=== PATIENT | female | born 1965 | race Caucasian/White ===

== ENCOUNTER 2018-04-07 10:30 | Outpatient (CLI) | payer OTHER ==
[~2018-04-07] VITALS: Ht 167.6 cm; Wt 83.9 kg
[~2018-04-07 10:30] MED LIST: HYDR1TAB PO
[2018-04-07] MEDS ORDERED: SERT50TA2 PO (10:36)
[2018-04-07] MEDS ORDERED: LISI1TAB8 PO (10:36)
[2018-04-08] MEDS ORDERED: RANI150T46 PO (07:52)
[2018-04-08] MEDS ORDERED: HYDR-3870 PO (11:27)
[2018-04-08] MEDS ORDERED: TAMS0.4C98 PO (11:27)
[2018-04-08] MEDS ORDERED: NITR-65 PO (11:27)
== END 2018-04-07 11:05 ==
LOC: PREOP 10:30
PROVIDERS: ATTEND Urology
DX: Z01.818 Encounter for other preprocedural examination (principal)

== ENCOUNTER 2018-04-08 07:02 | Day surgery (SDC) | payer OTHER ==
[~2018-04-08] VITALS: Ht 167.6 cm; Wt 83.9 kg
[~2018-04-08 07:02] MED LIST changes: +LISI1TAB8 PO; +SERT50TA2 PO
--- OUTSIDE RECORDS SUMMARY | 2018-04-08 07:05 | XMS REPORT ---
Author Author SHAWN ANGELES Organization [employer] Address Unknown Phone Unavailable Care Team Providers Care Supply Teacher Name Role Phone SHAWN ANGELES CP Unavailable Allergies No Known Allergies Problems Problem Type Condition Code Onset Dates Condition Status Problem Other and unspecified ovarian cyst 620.2 Active Problem Diverticulitis of colon (without mention of hemorrhage) 562.11 Active Problem Hypertension 401.9 Active Problem Calculus of ureter 592.1 Active Problem Unspecified breast screening V76.10 Active Problem Calculus of kidney 592.0 Active Problem Diverticulosis of small intestine (without mention of hemorrhage) 562.00 Active Medications No Known Medications Results No Known Results Summary Purpose eClinicalWorks Submission
--- OUTSIDE RECORDS SUMMARY | 2018-04-08 07:05 | XMS REPORT ---
Author Author DAVID VILLARREAL [facility] Address Unknown Care Team Providers Care Staff Genetic Counselor Name Role Phone DAVID VILLARREAL Unavailable PROBLEMS Type Condition ICD9-CM Code EDG56-SD Code Onset Dates Condition Status SNOMED Code Problem Unspecified breast screening V76.10 Active 687754970 Problem Hypertension 401.9 Active 47963688 Problem Diverticulosis of small intestine (without mention of hemorrhage) 562.00 Active 6572755 Problem Calculus of ureter 592.1 Active 87153714 Problem Other and unspecified ovarian cyst 620.2 Active 81327765 Problem Diverticulitis of colon (without mention of hemorrhage) 562.11 Active 263519026 Problem Calculus of kidney 592.0 Active 21944066 ALLERGIES Substance Reaction Event Type Date Status Naproxen rash Drug Allergy Sep, Active Erythromycin rash Drug Allergy Sep, Active Dilaudid anaphylaxis Drug Allergy Sep, Active Codeine Sulfate rash Drug Allergy Sep, Active Aspirin rash Drug Allergy Sep, Active SOCIAL HISTORY No smoking Hx information available PLAN OF CARE Activity Details Follow Up prn Reason:prophy VITAL SIGNS Blood pressure systolic 123 mmHg 2016-09-18 Blood pressure diastolic 91 mmHg 2016-09-18 MEDICATIONS Medication Instructions Dosage Frequency Start Date End Date Duration Status Zantac 150 MG Orally Twice a day 1 tablet 12h Active Black Cohosh Active Zoloft 50 MG Orally Once a day 1 tablet 24h Nov, Active Dicyclomine HCl Active ZyrTEC Active Lisinopril Active RESULTS No Results PROCEDURES Procedure Date Ordered Related Diagnosis Body Site EXTRAC ERUPTED TOOTH/EXPOSED ROOT Sep 18, 2016 IMMUNIZATIONS No Known Immunizations
--- OUTSIDE RECORDS SUMMARY | 2018-04-08 07:05 | XMS REPORT ---
Author Author EDWARD JACK Organization [facility] Address [address] [place] [address] Care Team Providers Care Tiller Man Name Role Phone EDWARD JACK Unavailable PROBLEMS Type Condition ICD9-CM Code ATJ08-DP Code Onset Dates Condition Status SNOMED Code Problem Breast cancer screening Z12.31 Active 970557628 Problem Cigarette smoker within last 12 months Z87.891 Active 94338088 Problem Renal calculus, left N20.0 Active 87514786 Problem History of hepatitis C Z86.19 Active 31043044990552 Problem Essential hypertension I10 Active 03129899 Problem Left hand pain M79.642 Active 542047095224271 Problem Anhedonia R45.84 Active 81734907 Problem Left lower quadrant abdominal pain of unknown etiology R10.32 Active 976985524 ALLERGIES No Information ENCOUNTERS Encounter Location Date Diagnosis [employer] [address] [id number] [place] [id number] Mar, [facility] [address] [id number][place] [address] Mar, [facility] [address] [id number][place] [address] February, Renal calculus, left N20.[address] [id number] [place] [address] February, Renal calculus, left N20.0 ; Essential hypertension I10 and History of hepatitis C Z86.19 [facility] [address] [id number] [place] [address] Dec, [facility] [address] [id number][place] [address] Dec, [facility] [address] [id number][place] [address] Dec, Left lower quadrant abdominal pain of unknown etiology R10.32 ; Essential hypertension I10 and Anhedonia R45.84 [facility] [address] [id number][place] [id number] Nov, [facility] [address] [id number][place] [address] Nov, [facility] [address] [id number], [place] [address] Oct, [facility] [address] [id number][place] [address] Oct, Essential hypertension I10 and Screening cholesterol level Z13.220 [facility] [address] [id number], [place] [id number] Sep, [facility] [address] [id number][place] [address] Sep, Left hand pain M79.642 ; Cigarette smoker within last 12 months Z87.891 and Breast cancer screening Z12.31 [facility] [address] [address] Sep, Dental caries K02.9 [facility] FQ [address] [id number], [place] [address] Jul, Dental examination Z01.20 [facility] [address] [address] Jun, Dental examination Z01.20 [facility] [address] [id number], [place] [address] May, [facility] [place] [address] [id number], [place] [address] February, [facility] [place] [address] [id number], [place] [address]99716[address] Dec, [facility] [place] [address] [id number], [place] [address] Oct, Urinary tract infection, site unspecified N39.0 [facility] [address] [id number], [place] [address] Oct, [facility] [place] [address] [id number] [place] [id number] Sep, [facility] [place] [address] [id number], [place] [address] Aug, Essential hypertension I10 [facility] [place] [address] [id number], [place] [address] Jun, [facility] [place] [address] [id number], [place] [address] Jun, [facility] [address] [id number], [place] [address] Apr, Dental examination V72.[address] [facility] [address] [id number], [place] [address] Mar, Dental examination V72.2 [facility] [place] [address] [id number], [place] [id number] February, Hypertension 401.[address] [facility] [address] [id number], [place] [address] February, Dental examination V72.2 [facility] [address] [id number], [place] [address]605[address] February, Dental examination V72.2 [facility] [place] [address] [id number], [place] [phone] February, [facility] [place] [address] [id number], [place] [address] February, Hypertension 401.9 [facility] [place] [address] [id number], [place] [address]79[address] February, [facility] [address] [id number], [place] [address] Jan, Dental examination V72.2 [facility] [address] [id number], [place] [address] Jan, [facility] [address] [id number], [place] [address] Jan, [facility] [place] [address] [id number] [place] [address] Nov, [facility] [place] [facility] [address] [facility] [id number], [place] [address] Nov, [facility] [place] [address] [facility] [id number] [place] [address] Nov, [facility] [place] [facility] [address] [facility] [id number], [place] [address] Nov, [facility] [place] [facility] [address] [facility] [id number], [place] [address] Nov, [facility] [place] [address] [facility] [id number] [place] [id number] Nov, [facility] [place] [address] [facility] [id number] [place] [id number] Sep, [facility] [place] [facility] [address], [place] [address] Sep, [facility] [place] [address] [facility] [id number], [place] [address] Sep, [facility] [place] [facility] [address] [id number], [place] [address] Sep, [facility] [place] [address] [facility] [id number], [place] [address] Jul, [facility] [place] [facility] [address] [id number], [place] [address] Jul, [facility] [place] [address] [facility] [id number], [place] [address] Mar, [facility] [place] [facility] [address] [facility] [id number], [place] [address] Mar, [facility] [place] [facility] [address] [facility] [id number], [place] [address] Mar, [facility] [place] [facility] [address] [facility] [id number], [place] [address] Mar, [facility] [place] [address] [facility] [id number], [place] [address] Mar, [facility] [place] [facility] [address] [id number] [place] [address] Mar, [facility] [place] [address] [address] [id number] [place] [id number] February, [facility] [place] [facility] [address] [id number] [place] [address] February, [facility] [place] [address] [id number] [place] [address] Dec, [facility] [place] [facility] [address] [id number] [place] [address] Dec, [facility] [place] [address] [facility] [id number] [place] [address] Dec, [facility] [place] [facility] [address] [facility] [id number] [place] [address] Dec, [facility] [place] [facility] [address] [facility] [id number] [place] [address] Dec, [facility] [place] [address] [facility] [id number] [place] [id number] Dec, [facility] [place] [facility] [address] [facility] [id number] [place] [address] Dec, [facility] [place] [address] [facility] [id number] [place] [id number] Dec, [facility] [place] [facility] [address] [id number] [place] [address] Dec, [facility] [place] [address] [facility] [id number], [place] 480230441 Dec, [facility] [place] [facility] [address] [facility] [id number] [place] [address]- [address] Dec, [facility] [place] [facility] [address] [facility] [id number] [place] [address] Dec, [facility] [place] [address] [facility] [id number] [place] [id number] Oct, [facility] [place] [facility] [address] [facility] [id number], [place] [address] Oct, [facility] [address] [id number], [place] [address] Oct, [facility] [place] [facility] [address] [facility] [id number], [place] [address] Oct, [facility] [address] [facility] [id number], [place] [address]- [address] Oct, [facility] [place] [facility] [address] [facility] [id number], [place] [address]- [address] Oct, [facility] [place] [facility] [address] [facility] [id number], [place] [address] Oct, [facility] [place] [address] [facility] [id number], [place] [id number] Oct, [facility] [address] [facility] [id number], [place] [address] Oct, [facility] [place] [facility] [address] [facility] [id number], [place] [address]- [address] Oct, [facility] [place] [address] [facility] [id number], [place] [id number] Oct, [facility] [place] [address] [facility] [id number], [place] [id number] Sep, [facility] [place] [facility] [address] [facility] [id number], [place] [address]- [address] Sep, [facility] [place] [facility] [address] [facility] [id number], [place] [address]- [address] Sep, [facility] [place] [facility] [address] [facility] [id number], [place] [address]- [address] Sep, [facility] [place] [address] [facility] [id number], [place] 646271209 Sep, [facility] [place] [facility] [address] [facility] [id number] [place] [address]- [address] Sep, [facility] [place] [address] [facility] [id number], [place] [id number] Sep, [facility] [place] [facility] [address] [facility] [id number], [place] [address]- [address] Sep, [facility] [place] [address] [facility] [id number] [place] [address] Sep, [facility] [place] [facility] [address] [facility] [id number], [place] [address]- [address] Sep, [facility] [place] [facility] [address] [facility] [id number], [place] [address]- [address]46 Sep, [facility] [place] [address] [facility] [id number], [place] [id number] Aug, [facility] [address] [facility] [id number], [place] [address] Aug, [facility] [place] [address] [facility] [id number], [place] [id number] Aug, [facility] [address] [facility] [id number], [place] [address]- [address] Aug, [facility] [place] [facility] [address] [facility] [id number], [place] [address]- [address] May, [facility] [address] [facility] [id number], [place] [address]- [address] May, [facility] [place] [address] [facility] [id number], [place] [id number] Apr, [facility] [place] [address] [facility] [id number], [place] [id number] Apr, [facility] [place] [address] [facility] [id number], [place] [id number] Apr, [facility] [place] [facility] [address] [facility] [id number], [place] [address] Jul, [facility] [place] [address] [address] [id number], [place] 158727290 Jul, [facility] [place] [address] [facility] [id number], [place] [address]2361738 Jul, [facility] [place] [facility] [address] [facility] [id number], [place] [address]- [address] Jul, [facility] [place] [address] [id number] [place] [id number] May, [facility] [place] [address] [id number] [place] 169687212 May, [facility] [place] [address] [id number] [place] [address] Apr, [facility] [place] [address] [id number] [place] 922609526 Apr, [facility] [address] [facility] [id number], [place] [address]- [address] Apr, [facility] [place] [address] [id number] [place] [address] Apr, [facility] [place] [address] [id number] [place] [address] Mar, [facility] [place] [address] [id number] [place] [address] Mar, [facility] [id number] [place] [address] Mar, [facility] [place] [address] [id number] [place] [address] Mar, [facility] [place] [address] [id number] [place] [address] February, [facility] [place] [address] [id number] [place] [address] Dec, [facility] [place] [address] [id number] [place] [id number] Dec, [facility] [place] [address] [id number] [place] [address] Dec, [facility] [place] [address] [id number] [place] [id number] Nov, [facility] [address] [place] [address]- [address] Mar, [facility] [address]65[address], [place] [address] Dec, [facility] [id number] [place] [address] [place] [address]- [address] Jul, [facility] [address] [facility] [id number] [place] [address] May, [facility] [address] [facility] [id number], [place] [address]- [address]87 February, IMMUNIZATIONS No Known Immunizations SOCIAL HISTORY Never Assessed REASON FOR VISIT results PLAN OF CARE VITAL SIGNS MEDICATIONS Unknown Medications RESULTS No Results PROCEDURES No Known procedures INSTRUCTIONS MEDICATIONS ADMINISTERED No Known Medications MEDICAL (GENERAL) HISTORY Type Description Date Medical History depression Medical History kidney stones Medical History cardiac arrhythmia Medical History HBP Medical History Hep C-negative viral load in 2006 Medical History bipolar Medical History 1 cm renal stone on the left Surgical History left ureter stent-Dr. Hernandez, later removed, lithotripsy 02/2014 Surgical History cholecystectomy Surgical History partial hysterectomy due to fibroid tumor 2005 Surgical History colonoscopy 2013 Hospitalization History surgeries, childbirth
--- OUTSIDE RECORDS SUMMARY | 2018-04-08 07:05 | XMS REPORT ---
Author KIRA Curry [facility] [employer] Address Unknown Phone Unavailable Care Team Providers Care Technical Adjuster Name Role Phone KIRA UMANZOR CP Unavailable Allergies, Adverse Reactions, Alerts Substance Reaction Event Type Naproxen rash Drug Allergy Erythromycin rash Drug Allergy Dilaudid anaphylaxis Drug Allergy Codeine Sulfate rash Drug Allergy Aspirin rash Drug Allergy Problems Problem Type Condition Code Onset Dates Condition Status Assessment Dental examination Z01.20 Active Problem Other and unspecified ovarian cyst 620.2 Active Problem Diverticulitis of colon (without mention of hemorrhage) 562.11 Active Problem Hypertension 401.9 Active Problem Calculus of ureter 592.1 Active Problem Unspecified breast screening V76.10 Active Problem Calculus of kidney 592.0 Active Problem Diverticulosis of small intestine (without mention of hemorrhage) 562.00 Active Medications Medication Code System Code Instructions Start Date End Date Status Dosage Lisinopril [facility] [address]-68 not defined Benadryl [facility] [address]-50 not defined Zoloft [facility] [address]-20 50 MG Orally Once a day Nov 29, 2014 1 tablet ZyrTEC NDC 0 not defined ibuprofen NDC 0 not defined Amoxicillin [facility] [address]-61 500 MG Orally Four times a day Jul 23, 2016 Jul 30, 2016 1 capsule [place] [facility] [address]-07 5-325 MG Orally every 6 hrs Jul 23, 2016 Jul 27, 2016 1 tablet as needed Zantac [facility] [address]-59 150 MG Orally Twice a day 1 tablet Dicyclomine HCl [facility] [address]-89 not defined Black Cohosh NDC 0 not defined Procedures Procedure Coding System Code Date INTRAORL-PERIAPICAL 1 FILM 81196 CPT-4 D0220 Jul 23, 2016 LTD ORAL EVALUATION - PROBLEM FOCUS CPT-4 D0140 Jul 23, 2016 Vital Signs Date/Time: Jul 23, 2016 Blood Pressure Diastolic 99 mmHg Blood Pressure Systolic 136 mmHg Height 66 in Results No Known Results Summary Purpose eClinicalWorks Submission
--- OUTSIDE RECORDS SUMMARY | 2018-04-08 07:06 | XMS REPORT ---
Author Author EDWARD JACK Organization [facility] Address [address] [place] [address] Care Team Providers Care Shadowgraph Operator Name Role Phone EDWARD JACK Unavailable PROBLEMS Type Condition ICD9-CM Code HYZ82-II Code Onset Dates Condition Status SNOMED Code Problem Breast cancer screening Z12.31 Active 544863076 Problem Cigarette smoker within last 12 months Z87.891 Active 09600898 Problem Renal calculus, left N20.0 Active 18741526 Problem History of hepatitis C Z86.19 Active 84740694674197 Problem Essential hypertension I10 Active 18877446 Problem Left hand pain M79.642 Active 355120376026131 Problem Anhedonia R45.84 Active 22182698 Problem Left lower quadrant abdominal pain of unknown etiology R10.32 Active 050672542 ALLERGIES No Information ENCOUNTERS Encounter Location Date Diagnosis [employer] [address] [id number] [place] [id number] Mar, [employer] [address] [id number], [place] [id number] Mar, [facility] [address] [id number][place] [id number] February, Renal calculus, left N20.[address] [id number] [place] [address] February, Renal calculus, left N20.0 ; Essential hypertension I10 and History of hepatitis C Z86.19 [facility] [address] [id number] [place] [id number] Dec, [facility] [address] [id number] [place] [id number] Dec, [facility] [address] [id number][place] [id number] Dec, Left lower quadrant abdominal pain of unknown etiology R10.32 ; Essential hypertension I10 and Anhedonia R45.84 [facility] [address] [id number][place] [address] Nov, [facility] [address] [id number][place] [address] Nov, [facility] [address] [id number], [place] [id number] Oct, [facility] [address] [id number], [place] [address] Oct, Essential hypertension I10 and Screening cholesterol level Z13.220 [facility] [address] [id number][place] [id number] Sep, [facility] [address] [id number][place] [address] Sep, Left hand pain M79.642 ; Cigarette smoker within last 12 months Z87.891 and Breast cancer screening Z12.31 [facility] [address] [address] Sep, Dental caries K02.9 [facility] [address] [id number], [place] [address] Jul, Dental examination Z01.20 [facility] [address] [address] Jun, Dental examination Z01.20 [facility] [address] [id number], [place] [id number] May, [facility] [place] [address] [id number], [place] [address] February, [facility] [place] [address] [id number], [place] [address] Dec, [facility] [place] [address] [id number], [place] [address] Oct, Urinary tract infection, site unspecified N39.0 [facility] [address] [id number], [place] [address] Oct, [facility] [place] [address] [id number] [place] [address] Sep, [facility] [place] [address] [id number], [place] [address] Aug, Essential hypertension I10 [facility] [place] [address] [id number], [place] [address] Jun, [facility] [place] [address] [id number], [place] [address] Jun, [facility] [address] [id number][place] [address] Apr, Dental examination V72.[address] [facility] [address] [id number], [place] [address] Mar, Dental examination V72.2 [facility] [place] [address] [id number], [place] [address] February, Hypertension 401.[address] [facility] [address] [id number], [place] [address] February, Dental examination V72.2 [facility] [address] [id number], [place] [address] February, Dental examination V72.2 [facility] [place] [address] [id number], [place] [address] February, [facility] [place] [address] [id number], [place] [address] February, Hypertension 401.9 [facility] [place] [address] [id number], [place] [address] February, [facility] [address] [id number], [place] [address] Jan, Dental examination V72.2 [facility] [address] [id number], [place] [address] Jan, [facility] [address] [id number], [place] [address] Jan, [facility] [place] [address] [id number] [place] [id number] Nov, [facility] [place] [facility] [address] [facility] [id number], [place] [address] Nov, [facility] [place] [address] [facility] [id number] [place] [id number] Nov, [facility] [place] [facility] [address] [facility] [id number], [place] [address] Nov, [facility] [place] [facility] [address] [facility] [id number], [place] [address] Nov, [facility] [place] [address] [facility] [id number] [place] [id number] Nov, [facility] [place] [address] [facility] [id number] [place] [id number] Sep, [facility] [place] [facility] [address]00565[address], [place] [address] Sep, [facility] [place] [address] [facility] [id number], [place] [address] Sep, [facility] [place] [facility] [address] [id number], [place] [address] Sep, [facility] [place] [address] [facility] [id number], [place] [id number] Jul, [facility] [place] [facility] [address] [id number], [place] [address] Jul, [facility] [place] [address] [facility] [id number], [place] [address] Mar, [facility] [place] [facility] [address] [facility] [id number], [place] [address] Mar, [facility] [place] [facility] [address] [facility] [id number], [place] [address] Mar, [facility] [place] [facility] [address] [facility] [id number], [place] [address] Mar, [facility] [place] [address] [facility] [id number], [place] [id number] Mar, [facility] [place] [facility] [address] [id number] [place] [address] Mar, [facility] [place] [address] [id number] [place] [id number] February, [facility] [place] [facility] [address] [id number] [place] [address] February, [facility] [place] [address] [id number] [place] [id number] Dec, [facility] [place] [facility] [address] [id number] [place] [address] Dec, [facility] [place] [address] [facility] [id number] [place] [id number] Dec, [facility] [place] [facility] [address] [facility] [id number] [place] [address]- [address] Dec, [facility] [place] [facility] [address] [facility] [id number] [place] [address] Dec, [facility] [place] [address] [facility] [id number] [place] [id number] Dec, [facility] [place] [facility] [address] [facility] [id number] [place] [address] Dec, [facility] [place] [address] [facility] [id number] [place] [id number] Dec, [facility] [place] [facility] [address] [id number] [place] [address]- [address] Dec, [facility] [place] [address] [facility] [id number], [place] [id number] Dec, [facility] [place] [facility] [address] [facility] [id number] [place] [address]- [address] Dec, [facility] [place] [facility] [address] [facility] [id number] [place] [address]- [address] Dec, [facility] [place] [address] [facility] [id number] [place] [id number] Oct, [facility] [place] [facility] [address] [facility] [id number], [place] [address] Oct, [facility] [address] [id number], [place] [address] Oct, [facility] [place] [facility] [address] [facility] [id number], [place] [address]- [address] Oct, [facility] [address] [facility] [id number], [place] [address]- [address] Oct, [facility] [place] [facility] [address] [facility] [id number], [place] [address] Oct, [facility] [place] [facility] [address] [facility] [id number], [place] [address] Oct, [facility] [place] [address] [facility] [id number], [place] [address]155 Oct, [facility] [address] [facility] [id number], [place] [address]- [address] Oct, [facility] [place] [facility] [address] [facility] [id number], [place] [address] Oct, [facility] [place] [address] [facility] [id number], [place] 9529[address]881 Oct, [facility] [place] [address] [facility] [id number], [place] [address] Sep, [facility] [place] [facility] [address] [facility] [id number], [place] [address]- [address] Sep, [facility] [place] [facility] [address] [facility] [id number], [place] [address]- [address]37 Sep, [facility] [place] [facility] [address] [facility] [id number], [place] [address]- [address] Sep, [facility] [place] [address] [facility] [id number], [place] [address] Sep, [facility] [place] [facility] [address] [facility] [id number] [place] [address]- [address] Sep, [facility] [place] [address] [facility] [id number], [place] 119380486 Sep, [facility] [place] [facility] [address] [facility] [id number], [place] [address]- [address]46 Sep, [facility] [place] [address] [facility] [id number] [place] [id number] Sep, [facility] [place] [facility] [address] [facility] [id number], [place] [address]- [address]46 Sep, [facility] [place] [facility] [address] [facility] [id number], [place] [address]- [address] Sep, [facility] [place] [address] [facility] [id number], [place] [address]8712 Aug, [facility] [address] [facility] [id number], [place] [address]- [address] Aug, [facility] [place] [address] [facility] [id number], [place] 4469829[address] Aug, [facility] [address] [facility] [id number], [place] [address]- [address] Aug, [facility] [place] [facility] [address] [facility] [id number], [place] [address]- 5316 May, [facility] [address] [facility] [id number], [place] [address]- [address] May, [facility] [place] [address] [facility] [id number], [place] [address]87 Apr, [facility] [place] [address] [facility] [id number], [place] 807406255 Apr, [facility] [place] [address] [facility] [id number], [place] 556645819 Apr, [facility] [place] [facility] [address] [facility] [id number], [place] [address]- [address]36 Jul, [facility] [place] [address] [id number], [place] 436[address]72 Jul, [facility] [place] [address] [facility] [id number], [place] 64[address]11479 Jul, [facility] [place] [facility] [address] [facility] [id number], [place] [address]- [address] Jul, [facility] [place] [address] [id number] [place] [address] May, [facility] [place] [address] [id number] [place] [address]40[address]206 May, [facility] [place] [address] [id number] [place] [address] Apr, [facility] [place] [address] [id number] [place] 12299[address] Apr, [facility] [address] [facility] [id number], [place] [address]- [address] Apr, [facility] [place] [address] [id number] [place] [id number] Apr, [facility] [place] [address] [id number] [place] [id number] Mar, [facility] [place] [address] [id number] [place] 2599[address] Mar, [facility] [id number] [place] [address]- [address]28 Mar, [facility] [place] [address] [id number] [place] [address] Mar, [facility] [place] [address] [id number] [place] [id number] February, [facility] [place] [address] [id number] [place] [id number] Dec, [facility] [place] [address] [id number] [place] [id number] Dec, [facility] [place] [address] [id number] [place] [id number] Dec, [facility] [place] [address] [id number] [place] [id number] Nov, [facility] [id number] [place] [address]- 3538 Mar, [facility] [address]00565100[place], [place] [address]- [address] Dec, [facility] [id number] [place] [address] [place] [address] Jul, [facility] [address] [facility] [id number] [place] [address]- [address]84 May, [facility] [address] [facility] [id number], [place] [address]- [address] February, IMMUNIZATIONS No Known Immunizations SOCIAL HISTORY Never Assessed REASON FOR VISIT Lab (walk-in) PLAN OF CARE VITAL SIGNS MEDICATIONS Unknown Medications RESULTS No Results PROCEDURES Procedure Date Ordered Result Body Site LIPID PANEL Oct 29, 2017 COMPREHEN METABOLIC PANEL Oct 29, 2017 ASSAY THYROID STIM HORMONE Oct 29, 2017 COMPLETE CBC W/AUTO DIFF WBC Oct 29, 2017 VENIPUNCT, ROUTINE* Oct 29, 2017 INSTRUCTIONS MEDICATIONS ADMINISTERED No Known Medications MEDICAL [...]
--- OUTSIDE RECORDS SUMMARY | 2018-04-08 07:06 | XMS REPORT ---
Author Author NEGRITO MENDOZA Organization [facility] Address Unknown Phone Unavailable Care Team Providers Care Telephone Lines Repairer Name Role Phone NEGRITO MENDOZA Unavailable Unavailable PROBLEMS Type Condition ICD9-CM Code BJJ59-BI Code Onset Dates Condition Status SNOMED Code Problem Breast cancer screening Z12.31 Active 220132269 Problem Cigarette smoker within last 12 months Z87.891 Active 44604326 Problem Renal calculus, left N20.0 Active 03147831 Problem History of hepatitis C Z86.19 Active 81929427576715 Problem Essential hypertension I10 Active 31799450 Problem Left hand pain M79.642 Active 289066265580867 Problem Anhedonia R45.84 Active 72920366 Problem Left lower quadrant abdominal pain of unknown etiology R10.32 Active [id number] ALLERGIES No Information ENCOUNTERS Encounter Location Date Diagnosis [facility] [employer] [id number] [place] [id number] Mar, [address] [id number] [place] [address] February, Renal calculus, left N20.[address] [id number] [place] [address] February, Renal calculus, left N20.0 ; Essential hypertension I10 and History of hepatitis C Z86.19 [facility] [address] [id number] [place] [address] Dec, [address] [id number] [place] [address] Dec, [address] [id number] [place] [address] Dec, Left lower quadrant abdominal pain of unknown etiology R10.32 ; Essential hypertension I10 and Anhedonia R45.84 [facility] [address] [id number] [place] [address] Nov, [facility] [address] [id number] [place] [address] Nov, [facility] [address] [id number] [place] [address] Oct, [facility] [address] [id number] [place] [address] Oct, Essential hypertension I10 and Screening cholesterol level Z13.[address] [facility] [address] [id number] [place] [address] Sep, [facility] [address] [id number] [place] [address] Sep, Left hand pain M79.642 ; Cigarette smoker within last 12 months Z87.891 and Breast cancer screening Z12.31 [facility] [address]005[address] [address] Sep, Dental caries K02.9 [facility] [address]005[address], [place] [address] 17 Jul, 2016 Dental examination Z01.20 [facility] [facility] [id number] [place] [id number] 09 Jun, 2016 Dental examination Z01.20 [facility] [place] [address] [id number][place] [address] May, [facility] [place] [address] [id number][place] [address] February, [facility] [place] [address] [id number][place] [address] Dec, [facility] [place] [address] [id number][place] [address] Oct, Urinary tract infection, site unspecified N39.0 [facility] [place] [address] [id number] [place] [id number] Oct, [facility] [place] [address] [id number], [place] [address] Sep, [facility] [place] [address] [id number][place] [address] Aug, Essential hypertension I10 [facility] [place] [address] [id number], [place] [address] Jun, [facility] [place] [address] [id number], [place] [address] Jun, [facility] [address] [id number] [place] [address] Apr, Dental examination V72.[address] [facility] [address] [id number] [place] [address] Mar, Dental examination V72.2 [facility] [place] [address] [id number], [place] [address] February, Hypertension 401.[address] [facility] [address] [id number] [place] [address] February, Dental examination V72.[address] [facility] [address] [id number] [place] [address] February, Dental examination V72.2 [facility] [place] [address] [id number][place] [address] February, [facility] [place] [address] [id number][place] [address] February, Hypertension 401.9 [facility] [place] [address] [id number], [place] [address] February, [facility] [address] [id number] [place] [address] Jan, Dental examination V72.2 [facility] [address] [id number], [place] [address] Jan, [facility] [address] [id number] [address] Jan, [facility] [place] [address] [id number], [place] [address] Nov, [facility] [address] [facility] [id number], [place] [address] Nov, [facility] [place] [address] [facility] [id number] [place] [id number] Nov, [facility] [place] [facility] [address] [facility] [id number], [place] [address] Nov, 2014 [facility] [place] [facility] [address] [facility] [id number], [place] [address] Nov, 2014 [facility] [place] [address] [facility] [id number] [place] [address] Nov, [facility] [place] [address] [facility] [id number] [place] [address] Sep, [facility] [place] [facility] [address] [facility] [id number], [place] [address] Sep, [facility] [place] [address] [id number], [place] [address] Sep, [facility] [place] [facility] [address]00565[address], [place] [address] Sep, [facility] [place] [address] [id number], [place] [address] Jul, [facility] [place] [facility] [address] [facility] [id number], [place] [address] Jul, [facility] [place] [id number], [place] [address] Mar, [facility] [place] [facility] [address] [facility] [id number], [place] [address] Mar, [facility] [place] [facility] [address] [facility] [id number], [place] [address] Mar, [facility] [place] [facility] [address] [facility] [id number], [place] [address] Mar, [facility] [place] [address] [facility] [id number], [place] [id number] Mar, [facility] [place] [facility] [address] [facility] [id number], [place] [address] Mar, [facility] [address] [facility] [id number], [place] [address] February, [facility] [place] [facility] [address] [id number] [place] [address] February, [facility] [address] [id number] [place] [address] Dec, [facility] [place] [facility] [address] [facility] [id number] [place] [address] Dec, [facility] [address] [facility] [id number] [place] [address] Dec, [facility] [place] [facility] [address] [id number] [place] [address] Dec, [facility] [place] [facility] [address] [id number] [place] [address] Dec, [facility] [address] [facility] [id number] [place] [address] Dec, [facility] [place] [facility] [address] [facility] [id number] [place] [address] Dec, [facility] [address] [facility] [id number] [place] [address] Dec, [facility] [place] [facility] [address] [facility] [id number] [place] [address] Dec, [facility] [address] [facility] [id number] [place] [address] Dec, [facility] [place] [facility] [address] [facility] [id number] [place] [address] Dec, [facility] [place] [facility] [address] [facility] [id number] [place] [address]- [address] Dec, [facility] [address] [facility] [id number] [place] [address] Oct, [facility] [place] [facility] [address] [facility] [id number] [place] [address]- [address] Oct, [facility] [place] [facility] [address] [facility] [id number] [place] [address]- [address] Oct, [facility] [place] [facility] [address] [facility] [id number], [place] [address] Oct, [facility] [place] [facility] [address] [facility] [id number], [place] [address] Oct, [facility] [place] [facility] [address] [facility] [id number], [place] [address]- [address] Oct, [facility] [place] [facility] [address] [facility] [id number], [place] [address]- [address] Oct, [facility] [address] [facility] [id number], [place] [address] Oct, [facility] [place] [facility] [address] [facility] [id number], [place] [address]- [address] Oct, [facility] [place] [facility] [address] [facility] [id number], [place] [address]- [address] Oct, [facility] [id number], [place] [address]24[address] Oct, [facility] [address] [facility] [id number], [place] 394028704 Sep, [facility] [place] [facility] [address] [facility] [id number], [place] [address]- [address] Sep, [facility] [place] [facility] [address] [facility] [id number], [place] [address] Sep, [facility] [place] [facility] [address] [facility] [id number], [place] [address]- [address] Sep, [facility] [address] [facility] [id number], [place] [address] Sep, [facility] [place] [facility] [address] [facility] [id number], [place] [address]- [address] Sep, [facility] [address] [facility] [id number], [place] 255399662 Sep, [facility] [place] [facility] [address] [facility] [id number], [place] [address]- [address] Sep, [facility] [address] [id number], [place] [address] Sep, [facility] [address] [id number], [place] [address]- [address] Sep, [facility] [address] [facility] [id number], [place] [address]- [address] Sep, [facility] [address] [id number], [place] 557869854 Aug, [facility] [address] [facility] [id number], [place] [address]- [address] Aug, [facility] [address] [id number], [place] 755587672 Aug, [facility] [address] [facility] [id number], [place] [address]- [address] Aug, [facility] [address] [facility] [id number], [place] [address]- [address] May, [facility] [address]00565100[place], [place] [address] May, [facility] [address] [id number], [place] 384[address]233 Apr, [facility] [address] [id number], [place] 534822896 Apr, [facility] [address] [id number], [place] 540890226 Apr, [facility] [address] [id number], [place] [address]- [address]46 Jul, [facility] [address] [id number], [place] 064696548 Jul, [facility] [address] [id number], [place] 26[address]16485 Jul, [facility] [address] [id number], [place] [address]- [address]46 Jul, [facility] [address] [id number], [place] 499719967 May, [facility] [address] [id number], [place] 105996371 May, [facility] [address] [id number] [place] [address] Apr, [facility] [address] [id number] [place] [address] Apr, [facility] [place] [facility] [address]00565100[place], [place] [address] Apr, [facility] [address] [id number] [place] 098[address] Apr, [facility] [address] [id number] [place] 435[address] Mar, [facility] [address] [id number] [place] [address] Mar, [facility] [place] [facility] [address]00565100[place], [place] [address] Mar, [facility] [address] [id number] [place] [address] Mar, [facility] [address] [id number] [place] [id number] February, [facility] [address] [id number] [place] [address] Dec, [facility] [address] [id number] [place] 243957[place] Dec, [facility] [address] [id number] [place] 5638[address] Dec, [facility] [address] [id number] [place] [address] Nov, [facility] [place] [facility] [address]00565100[place], [place] [address]- [address] Mar, [facility] [place] [facility] [address]00565100[place], [place] [address]- [address] Dec, [facility] [place] [facility] [address]00565100[place], [place] [address]- [address] Jul, [facility] [place] [facility] [address]00565100[place], [place] [address]- [address] May, [facility] [place] [facility] [id number] [address] February, IMMUNIZATIONS No Known Immunizations SOCIAL HISTORY Never Assessed REASON FOR VISIT [facility] Contact PLAN OF CARE Activity Details Follow Up prn Reason: VITAL SIGNS MEDICATIONS Unknown Medications RESULTS No [...]
--- OUTSIDE RECORDS SUMMARY | 2018-04-08 07:07 | XMS REPORT ---
Author Author EDWARD JACK Organization [facility] Address [address] [place] [address] Care Team Providers Care Sensor Operator Name Role Phone EDWARD JACK Unavailable PROBLEMS Type Condition ICD9-CM Code DIN35-AY Code Onset Dates Condition Status SNOMED Code Problem Breast cancer screening Z12.31 Active 671770666 Problem Cigarette smoker within last 12 months Z87.891 Active 62899829 Problem Renal calculus, left N20.0 Active 41484315 Problem History of hepatitis C Z86.19 Active 25157485620445 Problem Essential hypertension I10 Active 87750843 Problem Left hand pain M79.642 Active 506325794310680 Problem Anhedonia R45.84 Active 11265838 Problem Left lower quadrant abdominal pain of unknown etiology R10.32 Active 169740610 ALLERGIES Substance Reaction Event Type Date Status Naproxen rash Drug Allergy Sep, Active Erythromycin rash Drug Allergy Sep, Active Dilaudid anaphylaxis Drug Allergy Sep, Active Codeine Sulfate rash Drug Allergy Sep, Active Aspirin rash Drug Allergy Sep, Active ENCOUNTERS Encounter Location Date Diagnosis [facility] [address] [id number], [place] [id number] Mar, [facility] [id number], [place] [id number] Mar, [facility] [address] [id number], [place] [address] February, Renal calculus, left N20.0 [facility] [address] [address] [id number], [place] [address] February, Renal calculus, left N20.0 ; Essential hypertension I10 and History of hepatitis C Z86.19 [facility] [address] [id number][place] [id number] Dec, [facility] [address] [id number], [place] [address] Dec, [facility] [address] [id number], [place] [address] Dec, Left lower quadrant abdominal pain of unknown etiology R10.32 ; Essential hypertension I10 and Anhedonia R45.[address] [facility] [address] [id number], [place] [id number] Nov, [facility] [address] [id number], [place] [id number] Nov, [facility] [address] [id number], [place] [address] Oct, [facility] [id number], [place] [address] Oct, Essential hypertension I10 and Screening cholesterol level Z13.220 [facility] [id number], [place] [address] Sep, [facility] [address] [id number], [place] [address] Sep, Left hand pain M79.642 ; Cigarette smoker within last 12 months Z87.891 and Breast cancer screening Z12.31 [facility] [address]00565100[place], [place] [address] Sep, Dental caries K02.9 [facility] [address] [id number], [place] [address] Jul, Dental examination Z01.20 [facility] [address] [id number], [place] [address] Jun, Dental examination Z01.20 [facility] [address] [id number], [place] [address] May, [facility] [address] [id number], [place] [address] February, [facility] [place] [id number] [place] [id number] Dec, [facility] [address] [id number] [place] [address] Oct, Urinary tract infection, site unspecified N39.0 [facility] [address] [id number] [place] [address] Oct, [facility] [address] [id number], [place] [address] Sep, [facility] [address] [id number], [place] [address] Aug, Essential hypertension I10 [facility] [address] [id number], [place] [address] Jun, [facility] [address] [id number], [place] [address] Jun, [facility] [address] [id number], [place] [address] Apr, Dental examination V72.[address] [facility] [address] [id number], [place] [address] Mar, Dental examination V72.2 [facility] [place] [address] [id number], [place] [address] February, Hypertension 401.[address] [facility] [address] [id number], [place] [address] February, Dental examination V72.[address] [facility] [address] [id number], [place] [address] February, Dental examination V72.2 [facility] [address] [id number], [place] [address] February, [facility] [place] [address] [id number], [place] [address] February, Hypertension 401.9 [facility] [address] [id number], [place] [address] February, [facility] [id number], [place] [address] Jan, Dental examination V72.2 [facility] [address] [id number], [place] [address] Jan, [facility] [place] [facility] [address]00565100[place], [place] [address] Jan, [facility] [address] [id number], [place] [address] Nov, [facility] [place] [facility] [address]00565100[place], [place] [address] Nov, [facility] [id number], [place] [address] Nov, [facility] [place] [facility] [address]00565100[place], [place] [address] Nov, [facility] [place] [facility] [address]00565100[place], [place] [address] Nov, [facility] [id number], [place] [address] Nov, [facility] [id number], [place] [id number] Sep, [facility] [place] [facility] [address]00565100[place], [place] [address] Sep, [facility] [id number], [place] [address] Sep, [facility] [place] [facility] [address]00565100[place], [place] [address] Sep, [facility] [address] [id number], [place] [address] Jul, [facility] [place] [facility] [address] [id number], [place] [address] Jul, [facility] [address] [id number], [place] [id number] Mar, [facility] [place] [facility] [address]00565100[place], [place] [address] Mar, [facility] [place] [facility] [address] [id number], [place] [address] Mar, [facility] [place] [facility] [address] [id number], [place] [address] Mar, [facility] [address] [facility] [id number] [place] [address] Mar, [facility] [place] [facility] [address] [id number] [place] [address] Mar, [facility] [address] [facility] [id number] [place] [address] February, [facility] [place] [facility] [address] [id number] [place] [address] February, [facility] [address] [facility] [id number] [place] [address] Dec, [facility] [place] [facility] [address] [id number], [place] [address] Dec, [facility] [address] [id number], [place] [address] Dec, [facility] [place] [facility] [address] [id number], [place] [address] Dec, [facility] [place] [facility] [address] [id number], [place] [address] Dec, [facility] [address] [facility] [id number], [place] [address] Dec, [facility] [place] [facility] [address] [id number], [place] [address] Dec, [facility] [address] [facility] [id number], [place] [id number] Dec, [facility] [place] [facility] [address] [id number] [place] [address] Dec, [facility] [address] [facility] [id number], [place] [address] Dec, [facility] [place] [facility] [address] [id number], [place] [address] Dec, [facility] [place] [facility] [address] [id number], [place] [address] Dec, [facility] [place] [address] [facility] [id number], [place] [address] Oct, [facility] [place] [facility] [address] [id number] [place] [address] Oct, [facility] [place] [facility] [address] [id number] [place] [address] Oct, [facility] [place] [facility] [address] [id number] [place] [address] Oct, [facility] [place] [facility] [address] [id number] [place] [address] Oct, [facility] [place] [facility] [address] [id number] [place] [address] Oct, [facility] [place] [facility] [address] [id number] [place] [address] Oct, [facility] [place] [address] [facility] [id number], [place] [address] Oct, [facility] [place] [facility] [address] [id number] [place] [address] Oct, [facility] [place] [facility] [address] [id number], [place] [address] Oct, [facility] [place] [address] [facility] [id number], [place] [address] Oct, [facility] [place] [address] [facility] [id number], [place] [address] Sep, [facility] [place] [facility] [address] [id number], [place] [address] Sep, [facility] [place] [facility] [address] [id number] [place] [address] Sep, [facility] [place] [facility] [address] [id number] [place] [address] Sep, [facility] [place] [address] [facility] [id number], [place] [address] Sep, [facility] [place] [facility] [address] [id number], [place] [address] Sep, [facility] [address] [facility] [id number] [place] [address] Sep, [facility] [place] [facility] [address] [id number], [place] [address] Sep, [facility] [address] [facility] [id number], [place] [address] Sep, [facility] [place] [facility] [address] [id number], [place] [address] Sep, [facility] [place] [facility] [address] [id number], [place] [address] Sep, [facility] [address] [id number], [place] [address] Aug, [facility] [address]00565100[place], [place] [address] Aug, [facility] [address] [id number], [place] [address] Aug, [facility] [place] [facility] [address]00565100[place], [place] [address] Aug, [facility] [place] [facility] [address] [id number], [place] [address] May, [facility] [place] [facility] [address]00565100[place], [place] [address] May, [facility] [address] [facility] [id number], [place] [address] Apr, [facility] [address] [facility] [id number], [place] [address] Apr, [facility] [address] [facility] [id number], [place] [address]653865 Apr, [facility] [place] [facility] [address] [id number], [place] [address] Jul, [facility] [address] [facility] [id number], [place] [address]35 Jul, [facility] [address] [id number] [place] [address] Jul, [facility] [address] [id number] [place] [address] Jul, [facility] [address] [id number] [place] [address] May, [facility] [address] [id number] [place] [address] May, [facility] [address] [id number] [place] [address] Apr, [facility] [address] [id number] [place] [address] Apr, [facility] [address] [id number], [place] [address] Apr, [facility] [address] [id number] [place] [id number] Apr, [facility] [address] [id number] [place] 6[address] Mar, [facility] [address] [id number] [place] [address] Mar, [facility] [address] [id number], [place] [address] Mar, [facility] [address] [id number] [place] [id number] Mar, [facility] [address] [id number] [place] [address] February, [facility] [address] [id number] [place] [address] Dec, [facility] [address] [id number] [place] [address] Dec, [facility] [address] [id number] [place] [address] Dec, [facility] [address] [id number] [place] [address] Nov, [facility] [address] [id number], [place] [address] Mar, [facility] [address] [id number], [place] [address] Dec, [facility] [address] [id number], [place] [address] Jul, [facility] [address] [id number], [place] [address] May, [facility] [address] [id number], [place] [address] February, IMMUNIZATIONS No Known Immunizations SOCIAL HISTORY Never Assessed REASON FOR VISIT Transition of Care from [place] seeing [place]. Patient states [place] is closer. bferrism PLAN OF CARE Activity Details Follow Up 2 Months Reason:b/p VITAL SIGNS Height 66 in 2017-09-19 Weight 187.3 lbs 2017-09-19 Temperature 97.5 degrees Fahrenheit 2017-09-19 Heart Rate 98 bpm 2017-09-19 Respiratory Rate 16 2017-09-19 BMI 30.23 kg/m2 2017-09-19 Blood pressure systolic 102 mmHg 2017-09-19 Blood pressure diastolic 62 mmHg 2017-09-19 MEDICATIONS Medication Instructions Dosage Frequency Start Date End Date Duration Status ZyrTEC Not-Taking Benadryl Not-Taking Zoloft 50 MG Orally Once a day 1 tablet 24h Nov, Active Spinosad 0.9 % Externally Once a day as directed 24h 23 Dec, 2015 Not-Taking ibuprofen Not-Taking Voltaren 1 % Transdermal 4 times a day 1 application as needed for pain 6h Sep, Active Dicyclomine HCl Active Lisinopril Active Zantac 150 MG Orally Twice a day 1 tablet 12h Active Black Cohosh Active Metoprolol Tartrate 25 MG Orally Twice a day 1 tablet 12h February, 30 day(s) Not-Taking RESULTS Name Result Date Reference Range Mammogram, Bilateral Screening 2017 PROCEDURES No Known procedures INSTRUCTIONS MEDICATIONS ADMINISTERED [...]
--- OUTSIDE RECORDS SUMMARY | 2018-04-08 07:07 | XMS REPORT ---
Author Author SHAWN ANGELES [facility] eClinicalWorks Address Unknown Phone Unavailable Care Team Providers Care Home Weatherizing Worker Name Role Phone SHAWN ANGELES CP Unavailable Allergies, Adverse Reactions, Alerts Substance Reaction Event Type Naproxen rash Drug Allergy Erythromycin rash Drug Allergy Dilaudid anaphylaxis Drug Allergy Codeine Sulfate rash Drug Allergy Aspirin rash Drug Allergy Problems Problem Type Condition Code Onset Dates Condition Status Assessment Urinary tract infection, site unspecified N39.0 Active Problem Other and unspecified ovarian cyst [...] Instructions Start Date End Date Status Dosage Macrobid [facility] [address]-24 100 MG Orally every 12 hrs Oct 25, 2015Oct 1 capsule with food Zoloft [facility] [address]-32 50 MG Orally Once a day Nov 29, 2014 1 tablet Zantac [facility] [address]-44 150 MG Orally Twice a day 1 tablet Metoprolol Tartrate [facility] [address]-89 25 MG Orally Twice a day February 10, 2015 1 tablet Procedures Procedure Coding System Code Date Office Visit, Est Pt., Level 3 CPT-4 10299 Oct 25, 2015 Vital Signs Date/Time: Oct 25, 2015 Temperature 98.1 F Weight 199.2 lbs Height 66 in BMI 32.15 Index Blood Pressure Diastolic 86 mmHg Blood Pressure Systolic 120 mmHg Cardiac Monitoring Heart Rate 72 bpm Results Name Result Date Reference Range Unit Abnormality Flag UA LONG DIP (IN HOUSE) ----NAI neg 20151025 ----NIT neg 20151025 ----SG >1.030 20151025 ----KET neg 20151025 ----RYAN neg 20151025 ----GLU neg 20151025 ----Odor + 20151025 ----pH 5.5 20151025 ----BLO neg 20151025 ----URO 0.2 20151025 ----Protein 1+ 20151025 ----Lot # [id number] ----Exp date 20151025 ----Clarity clear 20151025 ----Color dark yellow 20151025 Summary Purpose eClinicalWorks Submission
--- OUTSIDE RECORDS SUMMARY | 2018-04-08 07:07 | XMS REPORT ---
Author Author GEORGETTE AMADOR [facility] eClinicalWorks Address Unknown Phone Unavailable Care Team Providers Care Inspector Filters Name Role Phone GEORGETTE AMADOR Unavailable Allergies No Known Allergies Problems Problem [...] Instructions Start Date End Date Status Dosage Zoloft [facility] [address]-77 50 MG Orally Once a day Nov 29, 2014 1 tablet Results No Known Results Summary Purpose eClinicalWorks Submission
[2018-04-08 07:10] VITALS: BP 122/85
[2018-04-08] MEDS ORDERED: cefTRIAXone INJECTION 1,000 MG in NS (IVPB) 50 ML IV ONE (07:30)
--- NOTE | 2018-04-08 07:33 | Progress Note-Pre Operative ---
Pre-Operative Progress Note H&P Reviewed The H&P was reviewed, patient examined and no changes noted. Date Seen by Provider: Apr 08, 2018 Time Seen by Provider: 07:33 Date H&P Reviewed: Apr 08, 2018 Time H&P Reviewed: 07:33 Pre-Operative Diagnosis: LT RENAL STONES WILIAN FAJARDO MD Apr 08, 2018 7:33 am
--- NOTE | 2018-04-08 07:41 | Diagnostic Imaging Report ---
INDICATION: History of left renal calculus COMPARISON: CT dated 04/02/2018 FINDINGS: Multiple supine radiographic views of the abdomen were obtained and demonstrate nondistended loops of small bowel. There is no large collection of free peritoneal air. Mild air and stool are seen scattered throughout the colon. There is extraosseous calcification seen projecting over the left renal pelvis measuring approximately 9 mm. Bony structures show no gross acute abnormalities. IMPRESSION: 1. Nonobstructed small bowel gas pattern. 2. Probable calculus at the left renal pelvis. Dictated by: Dictated on workstation # [id number]
[2018-04-08] MEDS ORDERED: RANI150T46 PO (07:52)
[2018-04-08] MEDS: LACTATED RINGERS 1,000 ML IV PRN ×2 (08:00→09:55)
[2018-04-08] MEDS ORDERED: DEXAMETHASONE 10 MG/ML (DECADRON) 1 ML VIAL ONE (09:01)
[2018-04-08] MEDS ORDERED: fentaNYL INJECTION 100 MCG/2 ML AMP ONE (09:01)
[2018-04-08] MEDS ORDERED: MIDAZOLAM 2 MG/2 ML (VERSED) VIAL ONE (09:01)
[2018-04-08] MEDS ORDERED: proPOfol 200 MG/20 ML (DIPRIVAN) VIAL IV ONE (09:01)
[2018-04-08] MEDS ORDERED: LIDOCAINE PF 2% 5 ML (XYLOCAINE) VIAL ONE (09:01)
[2018-04-08] MEDS ORDERED: ONDANSETRON 4 MG/2 ML (SDV) Z0FRAN ONE (09:01)
[2018-04-08] MEDS ORDERED: KETOROLAC 30 MG/ML VIAL ONE (09:04)
[2018-04-08] MEDS ORDERED: FUROSEMIDE 40 MG/4 ML INJ (LASIX) ONE (09:04)
--- NOTE | 2018-04-08 09:22 | Progress Note-Post Operative ---
Post-Operative Progess Note Surgeon (s)/Scientific Systems Analyst (s) Surgeon WILIAN FAJARDO MD Scientific Systems Analyst: N/A Pre-Operative Diagnosis LT RENAL STONES Post-Operative Diagnosis SAME Procedure & Operative Findings Date of Procedure 04/08/18 Procedure Performed/Findings LT ESWL Anesthesia Type GENERAL Estimated Blood Loss Estimated blood loss (mL): N/A Specimens/Packing Specimens Removed N/A Packing: N/A WILIAN FAJARDO MD Apr 08, 2018 9:22 am
--- NOTE | 2018-04-08 09:24 | Discharge Inst-Urology ---
Discharge Inst-Urology Discharge Medications New, Converted, or Re-newed RX: RX on Chart Patient Instructions/Follow Up Plan Please make appointment to been seen in office Saturday 04/21, KUB prior to it KUB on way home Post ESWL instructions Increase oral fluids for 48 hours and then as needed. Diet and Activity as tolerated. If questions or concerns contact your physician Or seek help at emergency department. WILIAN FAJARDO MD Apr 08, 2018 9:24 am
[2018-04-08] MEDS ORDERED: SEVOFLURANE (ULTANE) 15 ML INHAL SOLN ONE (09:34)
[2018-04-08] MEDS ORDERED: MEPERIDINE (DEMEROL) INJ 50 MG/ML IVP PRN (10:00)
[2018-04-08] MEDS ORDERED: morphine INJ 10 MG/ML 1ML (SYR OR VIAL) IVP PRN (10:00)
[2018-04-08] MEDS ORDERED: ONDANSETRON 4 MG/2 ML (SDV) Z0FRAN IVP PRN (10:00)
[2018-04-08 10:25] VITALS: BP 121/80
[2018-04-08 10:55] VITALS: BP 125/93
[2018-04-08 11:25] VITALS: BP 120/80
[2018-04-08] MEDS ORDERED: TAMS0.4C98 PO (11:27)
[2018-04-08] MEDS ORDERED: HYDR-3870 PO (11:27)
[2018-04-08] MEDS ORDERED: NITR-65 PO (11:27)
--- NOTE | 2018-04-08 11:39 | Anesthesia-General Post-Op ---
General Patient Condition Mental Status/LOC: Same as Preop Cardiovascular: Satisfactory Nausea/Vomiting: Absent Respiratory: Satisfactory Pain: Controlled Complications: Absent Post Op Complications Complications None Follow Up Care/Instructions Patient Instructions None needed. Anesthesia/Patient Condition Patient Condition Patient is doing well, no complaints, stable vital signs, no apparent adverse anesthesia problems. No complications reported per nursing. D/C home per [facility] Criteria: Yes TATIANNA WALLS CRNA Apr 08, 2018 11:39
[2018-04-08 11:40] VITALS: BP 120/80
--- NOTE | 2018-04-08 13:21 | Diagnostic Imaging Report ---
EXAMINATION: Supine abdomen at 11:26 a.m. INDICATION: Post ESWL. FINDINGS: The exam performed earlier today at 07:43 a.m. noted a calculus overlying the left renal pelvis. That calculus is not as well visualized on this study and I suspect that it has been partially fragmented by the ESWL procedure. There is no clear evidence for a calculus along the expected path of the left ureter. The calcification low in the pelvis on the right seen previously is again evident and no different. The overall appearance of the abdomen has not changed significantly otherwise. IMPRESSION: 1. The calculus overlying the left kidney seen previously is not as conspicuous and has most likely been fragmented by the ESWL procedure. 2. No new abnormality has developed otherwise. Dictated by: Dictated on workstation # [id number]
--- NOTE | 2018-04-08 14:39 | OPERATIVE REPORT ---
DATE OF SERVICE: 04/08/2018 PREOPERATIVE DIAGNOSIS: Left renal stones. POSTOPERATIVE DIAGNOSIS: Left renal stones. OPERATION PERFORMED: Left ESWL. SURGEON: Aron Fajardo MD. ANESTHESIA: General. COMPLICATIONS: None. DESCRIPTION OF PROCEDURE: Under satisfactory general anesthesia, the patient in supine position on the ESWL table, the left renal stones were localized and shocks were delivered at kV of 5. A total of 2500 shocks completely fragmented the stone that was not visualized and removed. The patient received 40 mg of Lasix and 60 mg of Toradol IV. She tolerated the procedure and anesthesia well and was sent to recovery room in stable condition. Job ID: [id number] DocumentID: [id number] Dictated Date: 04/08/2018 09:40:48 Space Scheduler Date: 04/08/2018 14:38:43 Dictated By: ARON FAJARDO MD
== END 2018-04-08 11:40 | disposition home or self-care (01) ==
LOC: SDC 07:02
PROVIDERS: ATTEND Urology
DX: N20.0 Calculus of kidney (principal); B19.20 Unspecified viral hepatitis C without hepatic coma; F17.210 Nicotine dependence, cigarettes, uncomplicated; Z79.899 Other long term (current) drug therapy
CPT/HCPCS: 74018; 87081

== ENCOUNTER → 2018-04-21 | Outpatient (CLI) | payer OTHER ==
[~2018-04-21] MED LIST changes: +HYDR-3870 PO; +NITR-65 PO; +RANI150T46 PO; +TAMS0.4C98 PO
--- NOTE | 2018-04-21 16:39 | Diagnostic Imaging Report ---
INDICATION: Nephrolithiasis. Comparison is made with prior examination from 04/08/18. FINDINGS: Note is again made of some faint calcification projected over the left kidney. No definite stone fragments are seen along the expected course of either ureter. Bowel gas pattern is nonspecific. Surgical clips seen in the right upper quadrant. IMPRESSION: Persistent faint stone fragments projected over the left kidney. Dictated by: Dictated on workstation # [id number]
== END ==
LOC: RAD 14:01
PROVIDERS: ATTEND Urology
DX: N20.0 Calculus of kidney (principal)
CPT/HCPCS: 74018